=== PATIENT | female | born 1950 | race Caucasian/White ===

== ENCOUNTER → 2017-10-16 | Outpatient (CLI) | payer BC ==
--- NOTE | 2017-10-16 21:27 | DIAGNOSTIC IMAGING REPORT ---
CHEST 2 VIEWS ROUTINE CLINICAL HISTORY: Cough. COMPARISON STUDY: No previous studies for comparison. FINDINGS: Lung volumes are normal. No pneumothorax or pleural effusion is present. Linear right midlung opacity is noted. There is no consolidation to suggest pneumonia. Cardiomediastinal silhouette is normal. Pulmonary vascularity is normal. IMPRESSION: Minimal linear right midlung opacity. This likely reflects atelectasis or scarring. No consolidation to suggest pneumonia. Follow-up PA and lateral chest radiographs in one month are recommended. Electronically signed by: Naga Mitchell M.D. 10/16/2017 9:26 PM Dictated Date/Time: 10/16/2017 9:25 PM
== END | disposition home or self-care (01) ==
LOC: C.RAD 20:52
PROVIDERS: ATTEND Family Medicine
DX: J06.9 Acute upper respiratory infection, unspecified (principal); R09.89 Other specified symptoms and signs involving the circulatory and respiratory systems